=== PATIENT | male | born 1945 | race Caucasian/White ===

== ENCOUNTER 2020-01-22 19:35 | Emergency (ER) | payer OTHER ==
[~2020-01-22] VITALS: Ht 180.3 cm; Wt 73.2 kg
[2020-01-22 20:02] LABS: ABSOLUTE NEUTROPHILS 4.6 thou/uL (1.4-8.2); BASOPHILS 1.2 % (0.0-2.0); EOSINOPHILS 4.6 % (0.0-3.0); HEMOGLOBIN 14.9 gm/dL (14.0-18.0); LYMPHOCYTES 18.8 % (24.0-44.0); MCH 32.2 pg (26.0-34.0); MCHC 34.6 g/dL (28.0-37.0); MCV 93.3 fL (80.0-100.0); MONOCYTES 11.8 % (1.0-8.0); POLYS 63.6 % (36.0-66.0); RBC 4.61 mil/uL (4.50-6.00); RDW 12.8 % (10.5-14.5); WBC 7.2 thou/uL (4.0-11.0)
[2020-01-22] MEDS ORDERED: LIPITOR40 MG PO (20:11)
[2020-01-22] MEDS ORDERED: AUGMENTIN 875-1 EACH PO (20:12)
[2020-01-22 20:17] LABS: ANION GAP 5 mmol/L (7-16); BUN 11 mg/dL (7-18); CALCIUM 9.1 mg/dL (8.5-10.1); CHLORIDE 102 mmol/L (98-107); CO2 33 mmol/L (21-32); CREATININE 1.1 mg/dL (0.7-1.3); GLUCOSE 103 mg/dL (74-106); POTASSIUM 4.5 mmol/L (3.5-5.1); SODIUM 140 mmol/L (136-145)
[2020-01-22 20:21] LABS: PLATELET COUNT 162 thou/uL (150-400)
[2020-01-22 20:26] LABS: TROPONIN-I <0.06 ng/mL (<0.06)
[2020-01-22 21:42] VITALS: BP 125/80
--- NOTE | 2020-01-23 08:48 | EKG ---
[facility] [place] [address] ELECTROCARDIOGRAM REPORT Name: ANN KEENAN Room #: DEP M.R.#: [id number] Admission: 01/22/20 Attend Phys: Discharge: 01/22/20 Date of : 41 Report #: [id number] THIS REPORT FOR: cc: Valdemar Jaramillo MD, Neal A. MD Lundgren,Junior Ramirez MD [facility] ~ THIS REPORT FOR: //name// [facility] ED Test Date: 2020-01-22 Test Time: 19:49:00 Pat Name: ANN KEENAN Department: Room: Gender: Credit Control Clerk: khloe : 1945 Requested By: Edilson Tuttle Order Number: [id number] MD: Junior Paulson Measurements Intervals [place] Rate: 64 P: 22 MT: 143 QRS: 5 QRSD: 114 T: 18 QT: 436 QTc: 450 Interpretive Statements Sinus rhythm Borderline intraventricular conduction delay Abnormal R-wave progression, early transition No previous ECG available for comparison Electronically Signed On 01-23-2020 8:48:27 CDT by Junior Paulson [email or web address] <ELECTRONICALLY SIGNED> By: Junior Paulson MD, [facility] 01/23/20 0848 1949 48 Junior Paulson MD, [facility] /EPI
== END 2020-01-22 21:43 | disposition home or self-care (01) ==
LOC: ER 19:35
PROVIDERS: Emergency Medicine
DX: R07.89 Other chest pain (principal); Z79.899 Other long term (current) drug therapy

== ENCOUNTER 2021-07-28 13:33 | Emergency (ER) | payer OTHER ==
[~2021-07-28] VITALS: Ht 177.8 cm; Wt 59.0 kg
[~2021-07-28 13:33] MED LIST: AUGMENTIN 875-1 EACH PO; LIPITOR40 MG PO
[2021-07-28] MEDS ORDERED: ELIQUIS5 MG PO (13:38)
[2021-07-28] MEDS ORDERED: METOCLOPRAMIDE 55 M1 PO (13:39)
[2021-07-28 15:27] LABS: ABSOLUTE NEUTROPHILS 5.1 thou/uL (1.4-8.2); BASOPHILS 0.9 % (0.0-2.0); EOSINOPHILS 3.5 % (0.0-3.0); HEMOGLOBIN 15.3 gm/dL (14.0-18.0); LYMPHOCYTES 13.8 % (24.0-44.0); MCH 30.9 pg (26.0-34.0); MCHC 33.3 g/dL (28.0-37.0); MCV 92.9 fL (80.0-100.0); MONOCYTES 10.5 % (1.0-8.0); PLATELET COUNT 180 thou/uL (150-400); POLYS 71.3 % (36.0-66.0); RBC 4.96 mil/uL (4.50-6.00); RDW 13.9 % (10.5-14.5); WBC 7.2 thou/uL (4.0-11.0)
[2021-07-28 15:39] LABS: CALCIUM 9.4 mg/dL (8.5-10.1); CREATININE 0.8 mg/dL (0.7-1.3); POTASSIUM 4.5 mmol/L (3.5-5.1)
[2021-07-28 15:46] LABS: ALBUMIN 3.9 g/dL (3.4-5.0); TOTAL BILIRUBIN 0.8 mg/dL (0.2-1.0); TOTAL PROTEIN 7.7 g/dL (6.4-8.2)
[2021-07-28 15:53] LABS: URINE CLARITY CLEAR; URINE COLOR YELLOW; URINE GLUCOSE-RANDOM* NEGATIVE (Negative); URINE KETONES NEGATIVE (Negative); URINE PROTEIN (DIPSTICK) NEGATIVE (Negative); URINE SPECIFIC GRAVITY 1.015 (1.005-1.035)
[2021-07-28 15:54] LABS: URINE BILIRUBIN NEGATIVE (Negative); URINE BLOOD NEGATIVE (Negative); URINE LEUKOCYTES-REFLEX NEGATIVE (Negative); URINE NITRITE-REFLEX NEGATIVE (Negative); URINE UROBILINOGEN 0.2 E.U./dl (0.2-1.0)
[2021-07-28 16:40] VITALS: BP 135/71
== END 2021-07-28 16:40 | disposition home or self-care (01) ==
LOC: ER 13:33
PROVIDERS: Emergency Medicine
DX: R10.10 Upper abdominal pain, unspecified (principal); R10.33 Periumbilical pain